=== PATIENT | male | born 1990 | race Caucasian/White ===

== ENCOUNTER → 2020-03-16 | Outpatient (CLI) | payer OTHER | END | disposition home or self-care (01) | LOC: COVID19 12:18 | DX: Z03.818 Encounter for observation for suspected exposure to other biological agents ruled out (principal) ==

== ENCOUNTER 2020-03-21 21:16 | Emergency (ER) | payer OTHER ==
[~2020-03-21] VITALS: Ht 172.7 cm; Wt 89.4 kg
[2020-03-21 23:39] LABS: HEMATOCRIT 42.6 % (42.0-52.0); MEAN CELL VOLUME 90.1 fl (80.0-94.0); MEAN CORPUSCULAR HGB 30.7 pg (27.0-31.0); PLATELET COUNT AUTOMATED 163 10*3/uL (130-400); RED BLOOD COUNT 4.73 10*6/uL (4.50-5.90); RED CELL DISTRI WIDTH 12.7 % (0-14.5); WHITE BLOOD COUNT 4.9 10*3/uL (4.8-10.8)
[2020-03-21 23:55] LABS: ALBUMIN 3.3 gm/dl (3.1-4.5); ALKALINE PHOSPHATASE 140 U/L (45-117); BUN 21 mg/dl (7-24); CHLORIDE 108 mmol/L (98-107); CREATININE 0.96 mg/dL (0.70-1.30); LIPASE 60 U/L (73-393); POTASSIUM 3.8 mmol/L (3.5-5.1); SGOT/AST 42 IU/L (3-35); SODIUM 138 mmol/L (136-145); TOTAL PROTEIN 6.8 gm/dL (6.4-8.2)
[2020-03-22] LABS: SGPT/ALT 103 U/L (12-78)
[2020-03-22 00:01] LABS: ATYPICAL LYMPHS 6 % (0-0); PLATELET SUFFICIENCY NORMAL (NORMAL); TOTAL CELLS COUNTED 100 #CELLS
[2020-03-22 01:24] LABS: BILIRUBIN NEGATIVE (NEGATIVE); BLOOD NEGATIVE (NEGATIVE); CLARITY CLEAR (CLEAR); COLOR YELLOW (YELLOW); GLUCOSE NEGATIVE (NEGATIVE); KETONE NEGATIVE (NEGATIVE); LEUKO ESTERASE NEGATIVE (NEGATIVE); NITRITE NEGATIVE (NEGATIVE); UROBILINOGEN 0.2 E.U./dl (0.2-1.0)
[2020-03-22 01:25] LABS: BACTERIA 1+
== END 2020-03-22 02:24 | disposition home or self-care (01) ==
LOC: ED 21:16
PROVIDERS: Emergency Medicine
DX: N20.0 Calculus of kidney (principal)

== ENCOUNTER → 2020-03-24 | Outpatient (CLI) | payer OTHER ==
[2020-03-24 08:01] LABS: HEMATOCRIT 41.4 % (42.0-52.0); MEAN CELL VOLUME 89.2 fl (80.0-94.0); MEAN CORPUSCULAR HGB CONC 34.8 g/dl (33.0-37.0); RED BLOOD COUNT 4.64 10*6/uL (4.50-5.90); RED CELL DISTRI WIDTH 12.9 % (0-14.5); WHITE BLOOD COUNT 7.1 10*3/uL (4.8-10.8)
[2020-03-24 08:42] LABS: ALBUMIN 3.3 gm/dl (3.1-4.5); ALKALINE PHOSPHATASE 156 U/L (45-117); BUN 14 mg/dl (7-24); CHLORIDE 107 mmol/L (98-107); CHOLESTEROL 129 mg/dL (<200); CPK 525 U/L (39-308); HDL CHOLESTEROL 20 mg/dl (40-60); LDL CHOLESTEROL 82 mg/dL (9-159); LIPASE 56 U/L (73-393); POTASSIUM 3.7 mmol/L (3.5-5.1); SGOT/AST 64 IU/L (3-35); SGPT/ALT 97 U/L (12-78); SODIUM 138 mmol/L (136-145); TOTAL PROTEIN 6.9 gm/dL (6.4-8.2); TRIGLYCERIDES 134 mg/dl (<150); VLDL CHOLESTEROL 27 mg/dL (6-40)
[2020-03-24 08:44] LABS: CKMB 2.6 ng/ml (0.5-3.6)
[2020-03-25 08:11] LABS: HEP B CORE AB, IGM Negative (Negative); HEPATITIS B SURFACE AG Negative (Negative); HEPATITIS C VIRUS ANTIBODY <0.1 s/co (0.0-0.9)
[2020-03-25 11:09] LABS: HEP B CORE AB, IGM Negative (Negative); HEPATITIS B SURFACE AG Negative (Negative); HEPATITIS C VIRUS ANTIBODY <0.1 s/co (0.0-0.9)
== END | disposition home or self-care (01) ==
LOC: LAB 07:47
PROVIDERS: Nurse Practitioner Family
DX: R16.1 Splenomegaly, not elsewhere classified (principal); R53.83 Other fatigue; R10.9 Unspecified abdominal pain; R74.8 Abnormal levels of other serum enzymes; K75.9 Inflammatory liver disease, unspecified; R10.11 Right upper quadrant pain

== ENCOUNTER → 2020-05-09 | Outpatient (CLI) | payer OTHER ==
[2020-05-09 18:41] LABS: BASO % 0.5 % (0.0-1.0); EOS # 0.2 10*3/uL (0.0-0.4); EOS % 2.7 % (1.0-4.0); HEMATOCRIT 44.4 % (42.0-52.0); LYMPH # 3.1 10*3/uL (1.3-4.4); MEAN CELL VOLUME 89.2 fl (80.0-94.0); MEAN CORPUSCULAR HGB 30.9 pg (27.0-31.0); MEAN CORPUSCULAR HGB CONC 34.7 g/dl (33.0-37.0); MEAN PLATELET VOLUME 9.2 fl (9.6-12.3); MONO # 0.8 10*3/uL (0.1-1.0); MONO % 11.2 % (3.0-9.0); NEUT # 3.2 10*3/uL (2.3-7.9); NEUT % 43.3 % (47.0-73.0); PLATELET COUNT AUTOMATED 237 10*3/uL (130-400); RED BLOOD COUNT 4.98 10*6/uL (4.50-5.90); RED CELL DISTRI WIDTH 12.9 % (0-14.5); WHITE BLOOD COUNT 7.3 10*3/uL (4.8-10.8)
[2020-05-09 19:09] LABS: ALBUMIN 4.1 gm/dl (3.1-4.5); ALKALINE PHOSPHATASE 75 U/L (45-117); BUN 16 mg/dl (7-24); CHLORIDE 107 mmol/L (98-107); CREATININE 0.87 mg/dL (0.70-1.30); POTASSIUM 3.7 mmol/L (3.5-5.1); SGOT/AST 23 IU/L (3-35); SGPT/ALT 50 U/L (12-78); SODIUM 140 mmol/L (136-145); TOTAL PROTEIN 8.1 gm/dL (6.4-8.2)
[2020-05-11 16:11] LABS: CARDIOLIPIN AB IGA <9 APL U/mL (0-11)
[2020-05-12 07:09] LABS: BETA-2 GLYCOPROTEIN I AB,IGA <9 (0-25); BETA-2 GLYCOPROTEIN I AB,IGG <9 (0-20); BETA-2 GLYCOPROTEIN I AB,IGM <9 (0-32)
[2020-05-12 14:07] LABS: PTT-LA 42.7 sec (0.0-51.9)
[2020-05-13 04:06] LABS: ANTI-THROMBIN III ACTIVITY 99 % (75-135); PROTEIN C, ACTIVITY 110 % (73-180); PROTEIN S - FUNCTIONAL 59 % (63-140)
[2020-05-13 07:06] LABS: DVVTMIXRFX CHG; LUPUS DRVVT 47.7 sec (0.0-47.0)
[2020-05-13 08:08] LABS: LUPUS REFLEX INTERPRETATION Comment: (.)
== END | disposition home or self-care (01) ==
LOC: LAB 17:55
PROVIDERS: ATTEND Internal Medicine Hematology & Oncology
DX: Z11.59 Encounter for screening for other viral diseases (principal); D72.820 Lymphocytosis (symptomatic); D73.5 Infarction of spleen; R43.2 Parageusia

== ENCOUNTER → 2021-11-12 | Outpatient (CLI) | payer OTHER ==
[2021-11-12 18:07] LABS: HEMATOCRIT 48.6 % (42.0-52.0); MEAN CELL VOLUME 90.3 fl (80.0-94.0); MEAN CORPUSCULAR HGB CONC 34.4 g/dl (33.0-37.0); MEAN PLATELET VOLUME 9.9 fl (9.6-12.3); RED BLOOD COUNT 5.38 10*6/uL (4.50-5.90); RED CELL DISTRI WIDTH 12.4 % (0-14.5); WHITE BLOOD COUNT 6.6 10*3/uL (4.8-10.8)
[2021-11-12 18:25] LABS: ALKALINE PHOSPHATASE 80 U/L (45-117); BUN 10 mg/dl (7-24); CHLORIDE 105 mmol/L (98-107); CHOLESTEROL 149 mg/dL (<200); CREATININE 0.96 mg/dL (0.70-1.30); FREE T4 0.96 ng/dl (0.76-1.46); LDL CHOLESTEROL 71 mg/dL (9-159); POTASSIUM 3.6 mmol/L (3.5-5.1); SGOT/AST 22 IU/L (3-35); SGPT/ALT 48 U/L (12-78); SODIUM 139 mmol/L (136-145); TOTAL PROTEIN 7.5 gm/dL (6.4-8.2); TRIGLYCERIDES 250 mg/dl (<150)
== END | disposition home or self-care (01) ==
LOC: LAB 17:21
PROVIDERS: ATTEND Family Medicine
DX: Z00.00 Encounter for general adult medical examination without abnormal findings (principal); R10.9 Unspecified abdominal pain; K59.00 Constipation, unspecified

== ENCOUNTER 2022-03-13 13:10 | Emergency (ER) | payer OTHER ==
[~2022-03-13] VITALS: Wt 95.3 kg
[2022-03-13] MEDS ORDERED: PREDNISONE50 MG PO (13:52)
[2022-03-13] MEDS ORDERED: CYCLOBENZAPRINE10 MG PO (13:52)
== END 2022-03-13 14:15 | disposition home or self-care (01) ==
LOC: ED 13:10
DX: S56.911A Strain of unspecified muscles, fascia and tendons at forearm level, right arm, initial encounter (principal); S46.911A Strain of unspecified muscle, fascia and tendon at shoulder and upper arm level, right arm, initial encounter; F17.200 Nicotine dependence, unspecified, uncomplicated; X50.0XXA Overexertion from strenuous movement or load, initial encounter; Y93.89 Activity, other specified; Y92.69 Other specified industrial and construction area as the place of occurrence of the external cause; Y99.9 Unspecified external cause status

== ENCOUNTER → 2025-04-08 | Outpatient (CLI) | payer OTHER ==
[~2025-04-08] MED LIST: CYCLOBENZAPRINE10 MG PO; PREDNISONE50 MG PO
[2025-04-08 12:54] LABS: MEAN CELL VOLUME 94.5 fl (80.0-94.0); MEAN CORPUSCULAR HGB 32.0 pg (27.0-31.0); MEAN PLATELET VOLUME 10.1 fl (9.6-12.3); NUCLEATED RED BLOOD CELL 0.0 % (0.0-0.0); NUCLEATED RED BLOOD CELL 0.0 10*3/uL (0.0-0.0); PLATELET COUNT AUTOMATED 183.0 10*3/uL (130-400); RED CELL DISTRI WIDTH 12.8 % (0-14.5)
[2025-04-08 13:17] LABS: BUN 14 mg/dl (9-23); LDL CHOLESTEROL 81 mg/dL (9-159); SGPT/ALT 59 U/L (5-49)
[2025-04-08 13:50] LABS: VITAMIN D, 25-HYDROXY 40.8 ng/mL (30-100)
== END | disposition home or self-care (01) ==
LOC: LAB 12:32
PROVIDERS: ATTEND Family Medicine
DX: E78.00 Pure hypercholesterolemia, unspecified (principal); F90.0 Attention-deficit hyperactivity disorder, predominantly inattentive type

== ENCOUNTER → 2025-07-26 | Outpatient (CLI) | payer OTHER ==
[2025-07-26 10:10] LABS: MEAN CELL VOLUME 91.7 fl (80.0-94.0); MEAN CORPUSCULAR HGB 31.7 pg (27.0-31.0); MEAN PLATELET VOLUME 9.6 fl (9.6-12.3); NUCLEATED RED BLOOD CELL 0.0 % (0.0-0.0); NUCLEATED RED BLOOD CELL 0.0 10*3/uL (0.0-0.0); PLATELET COUNT AUTOMATED 219.0 10*3/uL (130-400); RED CELL DISTRI WIDTH 12.1 % (0-14.5)
[2025-07-26 10:41] LABS: BUN 11 mg/dl (9-23); GAMMA GLUTAMYL TRANSFERASE 29 U/L (0-73); LDL CHOLESTEROL 86 mg/dL (9-159); SGPT/ALT 36 U/L (5-49)
== END | disposition home or self-care (01) ==
LOC: LAB 09:33
PROVIDERS: ATTEND Family Medicine
DX: M25.512 Pain in left shoulder (principal); E78.00 Pure hypercholesterolemia, unspecified; R94.5 Abnormal results of liver function studies